=== PATIENT | female | born 1955 | race Hispanic/Latino ===

== ENCOUNTER 2024-08-16 22:01 | Emergency (ER) | payer SELFPAY ==
[~2024-08-16] VITALS: Ht 152.4 cm; Wt 71.7 kg
--- NOTE | 2024-08-16 22:24 | ERN ---
ED Note History of Present Illness Stated Complaint: C/O HIGH B/P WITH HEADACHE Chief Complaint: Hypertension Time Seen by MD: 22:08 Dictation: This is a 69-year-old female who presented to the emergency room stating that her blood pressure has been running high and she has a headache. Her family member accompanied her. Apparently patient was given nifedipine which she gets in [place] and she has been taking it once daily. She admits to taking her medication this morning. Patient is a poor historian and Romansh-speaking only and history is limited. She does not recall how high her blood pressure was at home . She denied chest pain diaphoresis. She also denied any blurred vision diplopia slurred speech facial droop or motor weakness or seizure activity Temperature 98.2 pulse 91 respirations 20 blood pressure 237/94 with a pulse oximetry of 98% on room air Long history of diabetes and hypertension-she is currently not on any medications for diabetes Allergies: Coded Allergies: No Known Allergies (Unverified Allergy, Unknown, 08/16/24) Past Medical History Past Medical History: Diabetes-Type II, Hypertension Surgical History: Unknown Family History: Negative Social History: Negative History: Not Applicable RN Note Reviewed/Agreed w/PFSH: Yes Review of System Dictation Constitutional: Negative for fever,chills, and weight loss Eyes: Negative for injury, pain,redness, and discharge ENT: Negative for injury,pain or swelling Cardiovascular: Negative for chest pain, palpitations, and edema Respiratory: Negative for shortness of breath, cough, and wheezing, Abdomen/GI: Negative for abdominal pain, nausea, vomiting, diarrhea, and constipation Back: Negative for injury and pain : Negative for injury, bleeding and discharge MS/Extremity: Negative for injury and deformity Skin: Negative for rash, and discoloration Neuro: Positive for headache, weakness, numbness, tingling, and seizure Psych: Negative for suicide ideation, homicidal ideation, and hallucinations Initial Vital Sign VS Vital Signs Date Time Temp Pulse Resp B/P (MAP) Pulse Ox O2 Delivery O2 Flow Rate FiO2 08/16/24 22:08 98.2 91 20 237/94 97 Room Air Physical Exam Dictation General: awake, alert, NAD Head/Face: Normocephalic, atraumatic Eyes: PERRL, EOMI, vision at baseline ENT: oral cavity clear, TMs clear, no signs of infection Neck: Trachea midline, supple, no nuchal rigidity Cardiovascular: RRR, normal S1/S2, No MRGs, no JVD Respiratory: CTAB, no respiratory distress, No rales or wheezes Abdomen: Soft, non-tender, non-distended, normal bowel sounds, no guarding or rebound. Skin: Warm, dry, normal turgor, no rash MS/Extremity: Pulses equal, no cyanosis, neurovascular intact, FROM Neuro: COAx4, GCS 15, strength 5/5, CN 2-12 intact, normal cerebellar exam, normal gait, Psych: Normal behavior, mood, and affect normal Extremities-trace edema without any palpable cords, Homans sign is negative Results (Laboratory/Radiology) Labs Reviewed?: Yes EKG Comment: Twelve lead EKG done on 08/16/2024 at 10:11 p.m. showed a heart rate of 88, NH interval 157, QRS 85, QT/QTC 368/445 Impression normal sinus rhythm with no acute STT wave changes noted. Interpreted by ER MD Dr. Gordon ED Course ED Course Orders Procedure Category Date Status Time 12 Lead Ekg Tracing- EKG 08/16/24 Logged Technical 22:19 Hydralazine 20mg Inj PHA 08/16/24 Complete (Apresoline 20mg In 22:30 Morphine 2mg Syg PHA 08/16/24 Complete (Morphine 2mg Syg) 22:30 Hydralazine 20mg Inj PHA 08/16/24 Complete (Apresoline 20mg In 23:30 Current Medications Medications (Trade) Dose Ordered Sig/Elsy Route PRN Reason Start Time Stop Time Status Last Admin Dose Admin Hydralazine HCl (APRESOLine 20MG INJ) 10 mg ONCE ONCE IM 08/16/24 22:30 08/16/24 22:31 DC 08/16/24 22:51 Hydralazine HCl (APRESOLine 20MG INJ) 20 mg ONCE ONCE IV 08/16/24 23:30 08/16/24 23:31 DC 08/16/24 23:56 Morphine Sulfate (morPHINE 2MG SYG) 2 mg ONCE ONCE IVP 08/16/24 22:30 08/16/24 22:31 DC 08/16/24 22:50 Vital Signs Date Time Temp Pulse Resp B/P (MAP) Pulse Ox O2 Delivery O2 Flow Rate FiO2 08/16/24 22:08 98.2 91 20 237/94 97 Room Air We will perform diagnostic labs, advanced imaging and administer medications according to the patient's complaint. Once the results are available, will review and personally interpreted the labs to rule out any acute life- threatening emergency the trach require immediate intervention and treatment. I will then re-evaluate the patient after treatment and diagnostic exams have return to determine whether the patient requires any further testing, can safely be discharged home or need further admission to hospital for additional treatment and evaluation. Feels much better and her headache is gone 12:21 a.m. repeat blood pressure is 125/84. Patient's family member indicated that they will go to [facility] and also the information given by charge nurse to follow up and get established with a healthcare provider to have her antihypertensives optimized. Medical Decision Making MDM MDM: Differential diagnosis: Accelerated blood pressure, hypertensive emergency, hypertensive urgency, uncontrolled hypertension Rationale: Tests considered and ordered secondary to shared decision making include: Previous outside records reviewed: Old ER visits. Risk of complication and/or morbidity or mortality of patient management: None Medications-Per medication reconciliation Need for hospitalization: Patient does not meet criteria for hospitalization. Need for emergency major/minor surgery: No There are no social concerns with this patient. Prescription drug management Prescriptions will include symptomatic care Patient's prior external medical records from other ER visits were reviewed by me as indicated. Prior testing and results from previous visits were reviewed. Prior tests were taken into account with medical decision making and resource utilization, independent historian/historians were used to obtain complete medical history. I independently interpreted the test that were performed, results were reviewed by me and considered findings on radiology if ordered. Medical management and examination interpretation discussions were had by me with other qualified healthcare professionals as indicated for the patient's care. Problem List Problem List: (1) Hypertensive urgency DX & DISP Disposition: Discharge Departure Impression: Primary Impression: Hypertensive urgency Condition: Stable Additional Instructions: Patient and the caregiver have been informed of all the diagnostic tests and the imaging conducted during the today's visit to the emergency room and has verbalized understanding of the results I have personally reviewed and interpreted all diagnostic exams performed here in the ER today as well as the vital signs documented by the nursing staff. The patient is now being discharged to home and should follow up with the primary care physician or the specialist as directed by the ER staff. Follow-up with primary care provider in 1 to 2 days. Take medications as directed here in the emergency room. Okay to continue home medications unless otherwise discussed during your visit in the emergency room today. Return to your nearest emergency room if symptoms worsen or if there is no improvement. Call 911 if you need immediate assistance. Take Tylenol or Motrin [id number] as needed and if no contraindications are present. Increase oral hydration. A wound culture or urine culture was ordered here in the emergency room department please follow-up with primary care provider and advise them to get repeat ports from our facility. If you had any Bakrai wrap/splints that were applied here, please do not remove them until you see your primary care or specialty. List of primary care physicians provided Referrals: NONE (PCP) BHAVESH GORDON MD Aug 16, 2024 22:24
[2024-08-16] MEDS: morPHINE 2 MG SYG IVP ONE (22:50)
[2024-08-16] MEDS: hydrALAZine 20MG/ML VIAL IM ONE (22:51)
[2024-08-16] MEDS: hydrALAZine 20MG/ML VIAL IV ONE (23:56)
[2024-08-17 00:50] VITALS: BP 121/55; PULSE 76; RESP 16; TEMP 98.1; O2SAT 99
--- NOTE | 2024-08-17 06:10 | EKG ---
[facility] Test Date: 2024-08-16 Test Time: 22:11:14 Pat Name: BONNY STOVALL Department: [facility] Room: Gender: F Cyber Intelligence Analyst: [id number] : [id number] Requested By: BHAVESH GORDON Order Number: [id number] Reading MD: Rohan Shelton Measurements Intervals [place] Rate: 88 P: 71 NM: 157 QRS: 14 QRSD: 85 T: 67 QT: 368 QTc: 445 Interpretive Statements Sinus rhythm No previous ECG available for comparison Electronically Signed On 08-17-2024 16:11:59 STATIONARY ENGINEER by Rohan Shelton Please click the below link to view image of tracing.
== END 2024-08-17 00:57 | disposition home or self-care (01) ==
LOC: EDH 22:01
DX: I16.0 Hypertensive urgency (principal); I10 Essential (primary) hypertension; E11.9 Type 2 diabetes mellitus without complications
CPT/HCPCS: 99284; 96374; 96375; 93005; 96372; J2270; J0360 ×2